=== PATIENT | male | born 1960 | race Caucasian/White ===

== ENCOUNTER → 2016-11-21 | Outpatient (CLI) | payer OTHER ==
[~2016-11-21] MED LIST: FENOFIBRATE160 MG PO; FLOMAX 0.4MG C0.4 MG PO; PREDNISONE20 MG PO
--- NOTE | 2016-11-22 15:57 | RADIOLOGY REPORT PS360 ---
MRI-LOW EXT ANY JOINT W/O-RT HISTORY: PAIN IN RT KNEE lateral knee pain with popping and cracking and instability ORDERING PHYSICIAN: Peterson Valdez MD PATIENT AGE: 56 years COMPARISON: Radiograph of 08/19/2016 TECHNIQUE: Standard multiplanar multiecho sequences are performed without contrast. FINDINGS: The cruciate ligaments appear intact. The collateral ligaments, patellar tendon, and quadriceps tendon have an unremarkable appearance. No definite meniscal tear. There is slight decrease in joint space medially and laterally greater along the medial compartment and at the patellofemoral joint with small osteophyte formation consistent with osteoarthritis. There is a small knee joint effusion. There is thinning of the posterior patellar cartilage with some increased T2 signal within the posterior aspect of the patella consistent with chondromalacia patella. No fracture or dislocation. No lytic or blastic changes IMPRESSION: 1. No evidence of internal derangement of the knee. 2. Mild osteoarthritic changes involving all 3 compartments greater at the medial compartment and patellofemoral joint with small knee joint effusion 3. Chondromalacia patella
--- NOTE | 2016-11-22 16:17 | RADIOLOGY REPORT PS360 ---
MRI-UP EXT ANY JNT W/O-RT HISTORY: Right shoulder pain, pain when raising arm ROTATOR CUFF SYNDROME, PAIN IN RT KNEE ORDERING PHYSICIAN: Peterson Valdez MD PATIENT AGE: 56 years COMPARISON: Radiograph of 08/19/2016 TECHNIQUE: Standard multiplanar multiecho sequences are performed without contrast. FINDINGS: There are moderate hypertrophic changes of the acromioclavicular joint causing impingement upon the musculotendinous junction of the supraspinatus tendon with contour deformity of the supraspinatus muscle. Arthritic changes are present at the acromioclavicular joint with hypertrophic change. There is mild thickening with slight increased T2 signal of the supraspinatus and infraspinatus tendons consistent with tendinopathy/tendinosis. There is a small focal area of increased T2 signal involving the infraspinatus tendon distally suggesting a partial tear. A complete tear with muscle and tendinous retraction not identified. There is some minimal subcortical cystic changes of the humeral head. The bicipital tendon appears in place. The subscapularis and teres minor tendons are intact. There are mild osteoarthritic changes of the glenohumeral joint with slight superior location of the humeral head. Small increased T2 signal involving the posterior glenoid labrum in their present nondisplaced reverse Bankart tear IMPRESSION: 1. Acromioclavicular arthropathy/hypertrophy with impingement upon the supraspinatus tendon with tendinopathy/tendinosis of the supraspinatus and infraspinatus tendons with possible partial tear of the infraspinatus tendon. 2. Increased T2 signal involves posterior glenoid labrum suggesting a nondisplaced reverse Bankart lesion of the glenoid labrum
== END ==
LOC: RAD 14:29
DX: M75.101 Unspecified rotator cuff tear or rupture of right shoulder, not specified as traumatic (principal); M25.561 Pain in right knee